=== PATIENT | female | born 1955 ===

== ENCOUNTER 2022-11-21 05:00 | Day surgery (SDC) | payer OTHER ==
[~2022-11-21] VITALS: Ht 157.5 cm; Wt 59.0 kg
[~2022-11-21 05:00] MED LIST: AMBIEN10 MG PO; FARXIGA10 MG PO; LIPIT PO; LOSARTAN-HCTZ1 EACH PO; LYRICA100 MG PO; LYRICA50 MG PO; NORFLEX PO; NORVASC5 MG PO; NOVOLIN 70100 UNIT/1; SYNTHROID88 MCG PO; ZETIA10 MG PO
[2022-11-21] MEDS ORDERED: TRAM1TAB98 PO (10:40)
== END 2022-11-21 13:20 | disposition home or self-care (01) ==
LOC: CIR.AMB 05:00
PROVIDERS: ATTEND Surgery
DX: R15.9 Full incontinence of feces (principal); L29.0 Pruritus ani; K62.89 Other specified diseases of anus and rectum; I10 Essential (primary) hypertension; Z20.822 Contact with and (suspected) exposure to COVID-19; Z88.6 Allergy status to analgesic agent; Z91.041 Radiographic dye allergy status
CPT/HCPCS: 64581; 95972; C1778

== ENCOUNTER 2022-12-05 06:35 | Day surgery (SDC) | payer OTHER ==
[~2022-12-05 06:35] MED LIST changes: +TRAM1TAB98 PO
[2022-12-05] MEDS ORDERED: TRAM1TAB98 PO (13:24)
== END 2022-12-05 14:55 | disposition home or self-care (01) ==
LOC: CIR.AMB 06:35 → CERT RX 06:35
PROVIDERS: ATTEND Surgery
DX: R15.9 Full incontinence of feces (principal); L29.0 Pruritus ani; K62.89 Other specified diseases of anus and rectum; K59.09 Other constipation; Z20.822 Contact with and (suspected) exposure to COVID-19; Z88.6 Allergy status to analgesic agent; Z91.041 Radiographic dye allergy status
CPT/HCPCS: 64590; 95972; C1767